=== PATIENT | male | born 1930 | race Caucasian/White ===

== ENCOUNTER 2016-12-17 14:15 | Inpatient (IN) | payer MEDICARE ==
[~2016-12-17] VITALS: Ht 170.2 cm; Wt 88.6 kg
[~2016-12-17 14:15] MED LIST: EPIN0.3D IM; LOSA100T29 PO; METO-272 PO; MULT1CAP33 PO
[2016-12-17 14:39] VITALS: BP 120/70; PULSE 73; RESP 20; O2SAT 97
[2016-12-17 15:53] LABS: EOSINOPHILS % (AUTO) 0.1 % (0-5)
[2016-12-17 15:58] LABS: BASOPHILS % (AUTO) 0.3 % (0-3); Mean Corpuscular Hemoglobin 32.2 pg (27.0-35.0); Mean Corpuscular Volume 91.5 fL (81-100); NEUTROPHILS % (AUTO) 77.7 % (40-74); Platelet Count 209 bil/L (150-400)
[2016-12-17 16:04] LABS: COLOR,URINE YELLOW (YELLOW)
[2016-12-17 16:05] LABS: APPEARANCE,URINE TURBID (CLEAR,HAZY); OCCULT BLOOD,URINE LARGE (NEGATIVE); UROBILINOGEN,URINE NORMAL (NORMAL)
[2016-12-17 16:06] LABS: ICTOTEST,URINE POSITIVE (Negative)
--- NOTE | 2016-12-17 18:06 | ED.REPORT ---
HPI-Abd Pain M 40 and Over Date of Service Dec 17, 2016 ED Provider: Wenceslao Camejo DO Pt is a 86 year old male with a history of HTN and GERD who presents to the ED complaining of worsening intermittent abdominal pain onset 6 days ago. He c/o associated dysuria with burning sensation, hematuria, nausea, flank pain, increased urinary frequency, and non-productive cough. He denies fever, vomiting , and diarrhea. Nursing Notes Stated Complaint: ABDOMINAL PAIN, PAIN WITH URINATION, DARK URINE Chief Complaint: Male Abdominal Pain Nursing Notes Reviewed: Yes Allergies: Coded Allergies: lisinopril (Verified Allergy, Unknown, 03/18/16) Uncoded Allergies: Seafood (Allergy, Severe, Angioedema, 03/18/16) Scheduled Epinephrine-Expunged Drug, Do Not Renew! (Epipen-Expunged Drug, Do Not Renew!) 0.3 Mg/0.3/Syringe Pen.injctr 0.3 MG IM PRN Losartan Potassium (Losartan Potassium) 100 Mg Tablet 100 MG PO DAILY Metoprolol Succinate ER (Metoprolol Succinate ER) 50 Mg Tab.er.24h 50 MG PO DAILY Miscellaneous Medications Multivitamin (Multivitamins) 1 Each Capsule 1 EACH PO General Time Seen by MD: 18:05 Chief Complaint Abdominal pain Hx Obtained From: Patient Arrived By: Walk-in Sudden in Onset?: No Onset Occurred: 1 week ago Symptom Duration: Since onset Past Medical History Past Medical History Pneumonia Prediabetic Arthiritis Reports: GERD, Hypertension Past Surgical History Prostate cancer Vasectomy, limpoma removal Smoking History Former Smoker Social History Alcohol Use: Denies alcohol use Drug Use: Denies drug use Other Social History: Good social support Ambulatory Status Independent Review of Systems Constitutional: Denies: Fever Respiratory: Reports: Non-productive cough GI: Reports: Abdominal pain, Nausea, Denies: Diarrhea, Vomiting Male: Reports Dysuria, Reports Flank pain, Reports Hematuria, Reports Urinary frequency Complete sys rev & neg: except as marked. Physical Exam Initial Vital Signs Vital Signs (First) Date Time Temp Pulse Resp B/P Pulse Ox O2 Delivery O2 Flow Rate FiO2 12/17/16 14:39 37.0 73 20 120/70 97 Room Air Initial VS: Reviewed Head / Eyes: Atraumatic, Normocephalic Neck: Supple, Full range of motion Extremities: Vascular intact, Neuro intact Neurologic: Alert, Oriented, Nonfocal Psychiatric: Mood/affect normal, Behavior normal General/Constitutional: Awake, Alert Respiratory / Chest: Atraumatic, Breath sounds NL, Breath sounds = bilat Cardiovascular: Heart rate NL, Regular rhythm, Heart sounds NL Trace foot edema Abdomen: Atraumatic, Soft Mild diffuse tenderness Back: Atraumatic, Full range of motion Skin: Warm, Dry, Intact Jaundiced Interpretation & Diagnostics Lab Results Interpretation Result Diagram: 12/17/16 1548 12/17/16 1548 Test 12/17/16 15:37 12/17/16 15:48 12/18/16 00:09 12/18/16 00:14 Urine Color Yellow (YELLOW) Urine Appearance Turbid (CLEAR,HAZY) Urine pH 5.0 (5.0-8.0) Urine Specific [place] 1.025 (1.003-1.035) Urine Protein 100mg/dL (NEG,TRACE) Urine Glucose (UA) Negativemg/dL (NEGATIVE) Urine Ketones Negativemg/dL (NEGATIVE) Urine Occult Blood Large (NEGATIVE) Urine Nitrite Negative (NEGATIVE) Urine Bilirubin Moderate (NEGATIVE) Urine Ictotest Positive (Negative) Urine Urobilinogen Normalmg/dL (NORMAL) Urine Leukocyte Esterase Moderate (NEGATIVE) Urine RBC 0-2/hpf (0-2) Urine WBC Packed/hpf (0-5) Urine Epithelial Cells Occasional/hpf (NONE-MOD) Urine Crystals None seen (NONE SEEN) Urine Bacteria Many/hpf (NONE-FEW) Urine Hyaline Casts None/lpf (NONE) Urine Granular Casts None seen (NONE SEEN) Urine Waxy Casts None seen (NONE SEEN) Urine Red Blood Cell Casts None seen (NONE SEEN) Urine White Blood Cell Casts None seen (NONE SEEN) Urine Mucus Present (None Seen) Urine Trichomonas None seen (NONE SEEN) Urine Yeast None (NONE SEEN) Urinalysis Comment None Urine Culture Reflexed Indicated White Blood Count 20.1th/mm3 (3.8-10.1) Red Blood Count 4.23mil/mm3 (4.40-5.80) Hemoglobin 13.6g/dL (13.8-17.2) Hematocrit 38.7% (41.0-50.0) Mean Corpuscular Volume 91.5fL (81-100) Mean Corpuscular Hemoglobin 32.2pg (27.0-35.0) Mean Corpuscular Hemoglobin Concent 35.1% (32.0-37.0) Red Cell Distribution Width 12.8% (12.3-15.4) Platelet Count 209bil/L (150-400) Neutrophils (%) (Auto) 77.7% (40-74) Lymphocytes (%) (Auto) 10.3% (14-46) Monocytes (%) (Auto) 11.0% (4-12) Eosinophils (%) (Auto) 0.1% (0-5) Basophils (%) (Auto) 0.3% (0-3) Prothrombin Time 11.4sec (8.1-12.5) Prothromb Time International Ratio 1.06ratio Sodium Level 126mEq/L (134-144) Potassium Level 4.7mEq/L (3.5-5.2) Chloride Level 87mEq/L (97-108) Carbon Dioxide Level 19mmol/L (18-29) Blood Urea Nitrogen 34mg/dL (8-27) Creatinine 2.38mg/dL (0.76-1.27) Estimat Glomerular Filtration Rate 28mL/min (>59) Glucose Level 353mg/dL (60-99) Calcium Level 9.3mg/dL (8.5-10.1) Total Bilirubin 6.6mg/dL (0.0-1.2) Aspartate Amino Transf (AST/SGOT) 93U/L (0-50) Alanine Aminotransferase (ALT/SGPT) 252U/L (0-44) Alkaline Phosphatase 425U/L (25-160) Troponin T 0.013ug/L (0.0-0.011) Total Protein 7.6g/dL (6.4-8.4) Albumin 3.5g/dL (3.4-5.0) Hold [place] Top Tube Received (Received) Acetaminophen Level < 15.0ug/mL Rx (10-25) Hold Urine Received (Received) ECG Interpretation ECG Interpretation: Sinus rhythm with a rate of 66 Left bundle branch block Time: 20:19 Interpreted by: ED physician X-Ray Chest Interpretation Chest Xray Interpretation: IMPRESSION: Normal for age. Dictated by: Jourdan Nuñez M.D. on 12/17/2016 at 19:07 View: Portable, 1 view Interpretation / Wet Read by: Interpret - Radiologist CT Abd / Pelvis Interpretation CONCLUSION: No bilary ductal dilatation. Mild hydronephrosis bilaterally without obstructing stones. This could be secondary to the distended bladder. Diverticula without evidence of diverticulitis. Transmitted to the eD at 22:52. Study type: Abdominal CT no contrast Interpretation / Wet Read by: Interpret - Radiologist US Abdominal Aorta IMPRESSION: Hyperechoic liver echotexture, most likely reflecting moderate diffuse fatty infiltration throughout the liver. No biliary distention is seen, no gallstones are identified within the gallbladder lumen and there is no suspicion for acute cholecystitis at this time. The right kidney shows mild to moderate hydronephrosis, etiology uncertain. Bladder diverticulum, debris within the bladder lumen. Findings discussed with the ordering healthcare provider. The creatinine level is elevated, CT scanning with oral contrast through the abdomen and pelvis is anticipated, and followup MR cholangiography may be obtained subsequently given reported abnormal liver function test despite the presence of no identified biliary distention. Dictated by: Jourdan Nuñez M.D. on 12/17/2016 at 20:26 Exam Interpreted by: Radiologist Re-Eval/Medical Decision Med Decision/Clinical Course This is a very pleasant 86-year-old male who presents to jaundice with diffuse abdominal pain and frequent urination. Symptoms going on for about 5 days. On examination he certainly was jaundice. He had a mildly tender abdomen without clinical peritonitis. Specifically his pain seemed to be more diffuse. It did not localize to the right upper quadrant. Remainder of his exam was benign. Diagnostics reveal evidence of pyelonephritis, acute on chronic renal insufficiency, acute hepatitis that is an obstructive pattern. We are culturing his urine and blood. An acute hepatitis panel has been sent out. CT scan was really noncontributory as well as an ultrasound. I suppose both these tests however rule out cholecystitis. Either way he is going to be admitted to the hospitalist service. I spoke with Dr. Alaniz from gastroenterology. He will consult tomorrow. Broad spectrum antibiotics. MRCP anticipated. Follow up with the acute hepatitis panel. Source of Hx: Old records Time of Eval: 18:22 Re-Evaluation/Progress Note: Informed pt of plan for admission. Pt understands and agrees with plan for admission. All questions addressed. Time of Eval: 19:22 Re-Evaluation/Progress Note: Pt rechecked. Informed pt of plan for US. Pt understands and agrees with plan for US. All questions address. Time of Eval: 22:35 Re-Evaluation/Progress Note: Pt rechecked. Updated pt on progress. All questions were addressed. Time of Eval: 22:51 Re-Evaluation/Progress Note: Pt rechecked. Updated pt and family on progress. All questions addressed. Time of Eval: 23:22 Re-Evaluation/Progress Note: Pt rechecked. Updated pt. All questions addressed. Consultation #1: Referral / Consult Name: Yumi Perry DO Call Returned at: 00:14 Strategic Planning Analyst: Will see patient, Agrees with eval, Agrees with plan, Accepts admit Consultation #2: Referral / Consult Name: Randall Alaniz MD Call Returned at: 00:15 Strategic Planning Analyst: Agrees with eval, Agrees with plan Note: Consult with GI. Discussed pt's case. Counseled Regarding: Diagnosis, Lab results, Need for admission Discharge & Departure Primary Impression: Generalized abdominal pain Additional Impressions: Pyelonephritis Hepatitis Jaundice Renal insufficiency Obstructive uropathy Disposition: ADMITTED TO HOSPITAL Vital Signs - All Vital Signs Date Time Temp Pulse Resp B/P Pulse Ox O2 Delivery O2 Flow Rate FiO2 12/17/16 22:58 36.9 71 20 97/54 98 Room Air 12/17/16 14:39 37.0 73 20 120/70 97 Room Air )( All Prior VS Reviewed: Yes Condition: Stable Referrals: Genesis Barba PA-C (PCP) Gab Attestation Portions of this note were transcribed by Mahsa Nelson. I, Dr. Camejo personally performed the history, physical exam and medical decision-making; I reviewed and confirmed the accuracy of the information in the transcribed note. Signed by : Gab Mccloud, 12/17/16. copies to: Genesis Barba PA-C, Todd P DO Dec 17, 2016 18:06 Mahsa Aguillon Dec 17, 2016 18:23
[2016-12-17] MEDS ORDERED: cefTRIAXone Inj 2,000 MG in Dextrose 5% Minibag Plus 50 ML IV ONE (18:20)
[2016-12-17] MEDS ORDERED: 0.9% Sodium Chloride 1,000 ML IV ONE (18:20)
--- NOTE | 2016-12-17 19:08 | DRSVH ---
PROCEDURE: X-RAY CHEST ONE VIEW, PORTABLE ([id number]) INDICATIONS: sepsis TECHNIQUE: One view of the chest was acquired. COMPARISON: None. FINDINGS: Surgical changes and devices: None. Lungs and pleura: No pleural effusions or pneumothorax. Lungs are clear. Mediastinum: Mediastinal contours appear normal. Heart size is normal. Bones and chest wall: No suspicious bony lesions. Overlying soft tissues appear unremarkable. IMPRESSION: Normal for age. Dictated by: Jourdan Nuñez M.D. on 12/17/2016 at 19:07 Approved by: Jourdan Nuñez M.D. on 12/17/2016 at 19:07
[2016-12-17] MEDS ORDERED: Iohexol 300 mg/mL 30 mL Inj PO ONE (20:20)
--- NOTE | 2016-12-17 20:31 | DRSVH ---
PROCEDURE: US ABDOMEN ([id number]) INDICATIONS: jaundice abdominal pain, TECHNIQUE: Real-time scanning was performed of the abdominal and retroperitoneal organs, with image documentatio n. COMPARISON: None. FINDINGS: Liver: Liver is normal in size and homogeneous in echotexture, diffusely hyperechoic consistent with fatty infiltration. Gallbladder: The gallbladder is free of inflammatory change and no biliary distention is found. The adjacent common hepatic duct measures up to 4.5 mm. This is well within normal limits. Biliary ducts: Intrahepatic bile ducts are non-dilated. Extrahepatic bile duct caliber measures 4.4 mm. Normal is 6-7 mm or less in diameter, or 10 mm or less post-cholecystectomy. Pancreas: Visualized portions of the pancreas are sonographically normal. Spleen: Spleen is normal in size and homogeneous in echotexture. Kidneys: Kidneys are normal in size and echotexture. Right kidney measures 8.4 cm long; left kidney measures 11.2 cm long. No hydronephrosis or nephrolithiasis on the left but there appears to be mil d to moderate hydronephrosis on the right. No solid masses. Aorta: Visualized aorta is normal in caliber at less than 3 cm. Iliacs: Proximal common iliac arteries are normal in caliber at less than 2.5 cm. IVC: Intrahepatic inferior vena cava is patent. Miscellaneous: No free abdominal fluid. A posterior bladder diverticulum appears present inferiorly and there also is debris within the bladder lumen IMPRESSION: Hyperechoic liver echotexture, most likely reflecting moderate diffuse fatty infiltratio n throughout the liver. No biliary distention is seen, no gallstones are identified within the gallb ladder lumen and there is no suspicion for acute cholecystitis at this time. The right kidney shows mild to moderate hydronephrosis, etiology uncertain. Bladder diverticulum, de bris within the bladder lumen. Findings discussed with the ordering healthcare provider. The creatinine level is elevated, CT scanning with oral contrast through the abdomen and pelvis is an ticipated, and followup MR cholangiography may be obtained subsequently given reported abnormal liver function test despite the presence of no identified biliary distention. Dictated by: Jourdan Nuñez M.D. on 12/17/2016 at 20:26 Approved by: Jourdan Nuñez M.D. on 12/17/2016 at 20:30
[2016-12-17] MEDS: Sodium Chloride LOK Flush 10 mL Syringe IVFLUSH SCH (21:05)
[2016-12-17 22:58] VITALS: BP 97/54; PULSE 71; RESP 20; O2SAT 98
[2016-12-17 23:17] LABS: INR 1.06 ratio
[2016-12-17] MEDS ORDERED: Lidocaine Topical 2% 30 mL Jelly ONE (23:52)
[2016-12-18] VITALS (9 sets, daily range): BP systolic 129–150; BP diastolic 48–76; PULSE 66–85; RESP 16–17; O2SAT 94–98
[2016-12-18] MEDS ORDERED: Alum-Mag Hydrox-Simeth 30 mL Suspension PO PRN (00:45)
[2016-12-18] MEDS ORDERED: Ondansetron 2 mg/mL 2 mL Inj IVPUSH PRN (00:45)
[2016-12-18] MEDS ORDERED: Polyethylene Glycol (PEG) 17 Gm Powder PO PRN (02:00)
[2016-12-18] MEDS ORDERED: EPIN0.3P17 IJ (02:51)
[2016-12-18] MEDS: 0.9% Sodium Chloride 1,000 ML IV SCH ×2 (02:53→16:34)
--- NOTE | 2016-12-18 03:13 | PCM.HPMED ---
Subjective Date of Service Dec 18, 2016 Primary Provider: Admitting Physician: Yumi Perry DO Primary Care Physician: Genesis Barba PA-C Attending Physician: Yumi Perry DO Admit Status: From the Emergency Department, Full Admit Chief Complaint: Dysuria. . History of Present Illness: Monica Ford is an 86-year-old male with a past medical history significant for hypertension and GERD who presents to [facility] emergency Department complaining of worsening intermittent abdominal pain 6 days. The patient complains of abdominal pain that started approximately 6 days ago. He reports that he began increasing frequency of urination. He has associated dysuria with burning sensation, hematuria, and flank pain. He denies fever, nausea, vomiting, and diarrhea. He rates his abdominal pain a + 7 out of 10 in severity. He has tried acetaminophen with Benadryl 1-2 tabs in the last week which gave him some relief. He has also had unrelated pruritus and non- productive cough. He denies any history of nephrolithiasis. Vital signs in the ER: Temperature 37.0. Pulse 73. Respiratory rate 20. Blood pressure 120/70. Pulse ox 97% on room air. He was given 1 L NS and ceftriaxone 2 g 1 in the ER. PCP is Genesis Barba PA-C. . Review of Systems: A comprehensive review of systems was conducted with the patient and found to be negative except as above in the History of Present Illness. . Allergies Coded Allergies: lisinopril (Verified Allergy, Unknown, 03/18/16) Uncoded Allergies: Seafood (Allergy, Severe, Angioedema, 03/18/16) Home Medications Losartan 100 mg daily. Metoprolol succinate 50 mg daily. Tums PRN dyspepsia. Multivitamin. . . PMH 1. Hypertension. 2. Gout. 3. BPH status post TURP? 4. GERD. . Surgical History 1. Tonsillectomy. 2. Prostate surgery/TURP? . Family History Mother and father who of old age. Brother who was an alcoholic and had diabetes mellitus who is . Brother who from MVA and drown. Sister from unknown cancer. . Social History Hx Alcohol Use: Yes (1 mixed drink 1-2 times a month) Hx Substance Use: No Hx Tobacco Use: Yes (quit in high school, 1ppd x 1 year) Smoking Status: Former Smoker (quit in high school, 1ppd x 1 year) Living Arrangement: Alone Additional Information The patient has been and has 4 children, 2 daughters and 2 sons. 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 . Exam Vital Signs Vital Sign - Last Date Time Temp Pulse Resp B/P Pulse Ox O2 Delivery O2 Flow Rate FiO2 12/18/16 00:59 36.6 69 16 145/76 95 Room Air Intake and Output 12/17/16 12/17/16 12/18/16 Cumulative From/Thru 14:58 22:58 06:58 12/17/16 14:39 - 12/18/16 00:50 Intake Total 1000 ml 1000 ml Balance 1000 ml 1000 ml Intake IV Total 1000 ml 1000 ml Exam General: Elderly gentleman lying in bed and in no acute distress, icteric, well- developed, well-nourished, appropriately interactive. HEENT: Normocephalic, atraumatic. External ears without defect. Pupils equal, round, and reactive to light. Icteric sclerae, moist conjunctivae, and no lid lag. Oropharynx free of erythema and cobble stoning with moist mucosa. Neck: Supple with full range of motion. No jugular venous distension. No bruits. No lymphadenopathy or thyromegaly. Cardiovascular: Regular rate and rhythm without murmurs, rubs, or gallops appreciated. Pulmonary: Clear to auscultation bilaterally with no crackles, wheezes, or rhonchi. Normal respiratory effort with no use of accessory muscles. Abdomen: Soft, mild tenderness to palpation in the lower abdomen/suprapubic area , nondistended, bowel sounds present. No hepatosplenomegaly or masses appreciated. Genitourinary: Lilly catheter in place draining purulent urine. Extremities: No clubbing or cyanosis. Mild trace pitting edema to mid pretibial area. Skin: Normal temperature, turgor, and texture; no rash, ulcers, or subcutaneous nodules appreciated. Neurological: Cranial nerves grossly intact. Normal muscle strength, tone, and bulk. Reflexes, coordination, and sensory function within normal limits. No known gait impairment. Psychiatric: Normal mood and affect. Alert and oriented to person, place, and time. . Lab and Diagnostics Labs Item Value Date Time Prothrombin Time 11.4 sec 12/17/16 1548 Prothromb Time International Ratio 1.06 ratio 12/17/16 1548 Item Value Date Time Urine Color Yellow 12/17/16 1537 Urine Appearance Turbid 12/17/16 1537 Urine pH 5.0 12/17/16 1537 Urine Specific [place] 1.025 12/17/16 1537 Urine Protein 100 mg/dL 12/17/16 1537 Urine Glucose (UA) Negative mg/dL 12/17/16 1537 Urine Ketones Negative mg/dL 12/17/16 1537 Urine Occult Blood Large 12/17/16 1537 Urine Nitrite Negative 12/17/16 1537 Urine Bilirubin Moderate 12/17/16 1537 Urine Ictotest Positive 12/17/16 1537 Urine Urobilinogen Normal mg/dL 12/17/16 1537 Urine Leukocyte Esterase Moderate 12/17/16 1537 Urine RBC 0-2 /hpf 12/17/16 1537 Urine WBC Packed /hpf 12/17/16 1537 Urine Epithelial Cells Occasional /hpf 12/17/16 1537 Urine Crystals None seen 12/17/16 1537 Urine Bacteria Many /hpf 12/17/16 1537 Urine Hyaline Casts None /lpf 12/17/16 1537 Urine Granular Casts None seen 12/17/16 1537 Urine Waxy Casts None seen 12/17/16 1537 Urine Red Blood Cell Casts None seen 12/17/16 1537 Urine White Blood Cell Casts None seen 12/17/16 1537 Urine Mucus Present 12/17/16 1537 Urine Trichomonas None seen 12/17/16 1537 Urine Yeast None 12/17/16 1537 Urinalysis Comment None 12/17/16 1537 Urine Culture Reflexed Indicated 12/17/16 1537 Item Value Date Time Calcium Level 9.3 mg/dL 12/17/16 1548 Total Bilirubin 6.6 mg/dL H 12/17/16 1548 Aspartate Amino Transf (AST/SGOT) 93 U/L H 12/17/16 1548 Alanine Aminotransferase (ALT/SGPT) 252 U/L H 12/17/16 1548 Alkaline Phosphatase 425 U/L H 12/17/16 1548 Troponin T 0.013 ug/L H 12/17/16 1548 Total Protein 7.6 g/dL 12/17/16 1548 Albumin 3.5 g/dL 12/17/16 1548 Result Diagram: 12/17/16 1548 12/17/16 1548 Microbiology Blood culture 2 pending. Urine culture pending. . X-Rays, CTs and MRIs US ABDOMEN IMPRESSION: Hyperechoic liver echotexture, most likely reflecting moderate diffuse fatty infiltration throughout the liver. No biliary distention is seen , no gallstones are identified within the gallbladder lumen and there is no suspicion for acute cholecystitis at this time. The right kidney shows mild to moderate hydronephrosis, etiology uncertain. Bladder diverticulum, debris within the bladder lumen. Findings discussed with the ordering healthcare provider. The creatinine level is elevated, CT scanning with oral contrast through the abdomen and pelvis is anticipated, and followup MR cholangiography may be obtained subsequently given reported abnormal liver function test despite the presence of no identified biliary distention. Dictated by: Jourdan Nuñez M.D. on 12/17/2016 at 20:26 X-RAY CHEST ONE VIEW, PORTABLE IMPRESSION: Normal for age. Dictated by: Jourdan Nuñez M.D. on 12/17/2016 at 19:07 . Assessment & Plan Monica Ford is an 86-year-old male with a past medical history significant for hypertension and GERD who presents to [facility] emergency Department complaining of worsening intermittent abdominal pain 6 days. 1. Acute obstructive uropathy with probable pyelonephritis, present on admission. Active. - Patient presented with dysuria, hematuria, urinary frequency with profound leukocytosis. - Patient has a history of BPH status post prostate surgery which is likely the cause of his obstruction. Differential diagnosis includes less likely nephrolithiasis versus stricture. - Abdominal ultrasound revealed right hydronephrosis without nephrolithiasis, as above. - Lilly catheter placed and draining pyuria and will leave to decompress bladder and relieve obstruction pending urology recommendations. - Ordered Roxicodone 2.5 mg every 4 hours as needed for pain due to acute transaminitis. - Ordered blood cultures 2 and urine culture, pending. - Continue ceftriaxone 2 g every 24 hours. - Day team to consult urology tomorrow morning. 2. Acute transaminitis, present on admission. Active. - Initial bilirubin 6.6 with elevated LFTs in a cholestatic pattern. - Abdominal ultrasound did not reveal dilation of the common bile duct, as above. - Acute hepatitis panel ordered and pending. - Avoid Tylenol and toxic liver metabolites. - Dr. Alaniz from GI was consulted and recommends MRCP tomorrow to assess for CBD stone. 3. Acute kidney injury on chronic kidney disease, present on admission. Active. - Patient's baseline creatinine 1.5 in 2016. Initial creatinine 2.38. - Avoid nephrotoxins. - Lilly catheter placed as above. - Ordered IV fluid hydration with NS at 80 mL/hr. 4. Acute hyponatremia, present on admission. Active. - Likely secondary to decreased PO intake and acute kidney injury. Obstructive jaundice may also be causing pseudohyponatremia from lipoprotein X. - Ordered IV fluid hydration with NS at 80 mL/hr. 5. Acute hyperglycemia, present on admission. Active. - Likely secondary to acute kidney injury. - We will check hemoglobin A1c to rule out diabetes mellitus type II. - Recheck CMP in the morning and if needed we will add a low-dose correctional scale insulin. Chronic problems: 6. Hypertension, present on admission. Stable. - Continue losartan 100 mg daily and metoprolol succinate 50 mg daily. 7. GERD, present on admission. Stable. - Tums ordered PRN. PRN antiemetics: Zofran and Maalox. PRN bowel regimen: Senna and MiraLAX. PRN analgesics: Tylenol. Patient is admitted under inpatient status with expected length of stay greater than 2 midnights due to severity of presenting symptoms, risk of adverse event, and complexity of treatment plan. . VTE Prophylaxis: Sub-Q Heparin (Unfractionated), SCDs Resuscitation Status: DNR/DNI:Do Not Resuscitate/Intubate Attending Statement The patient was seen and examined together with house staff on 12/17/2016 and I agree with the history, exam and plan as outlined in the note above. Yoly Marin DO Dec 18, 2016 01:46 Yumi Perry DO Dec 18, 2016 05:24
[2016-12-18 05:41] LABS: BASOPHILS % (AUTO) 0.2 % (0-3); EOSINOPHILS % (AUTO) 0.3 % (0-5); MONOCYTES % (AUTO) 13.1 % (4-12); Mean Corpuscular Hemoglobin 31.9 pg (27.0-35.0); Mean Corpuscular Volume 91.3 fL (81-100); NEUTROPHILS % (AUTO) 75.8 % (40-74); Platelet Count 203 bil/L (150-400)
--- NOTE | 2016-12-18 06:08 | NUR ---
admit Pt arrived to unit at 0050 from ED via stretcher. Alert, oriented, and able to make needs known. No decreased in LOC noted. Denies N/V/D, resp distress and/or SOB. Pleasant and cooperative with care. Transfer with one person stand by assist for safety. Lilly catheter in place, patent and draining cloudy thick urine with sediment noted. Pt was uncomfortably and c/o abdominal discomfort. ambulated in room with no balance deficit. Medicated for abd. pain with oxycodone 2.5mg x1 with some relief noted and reported. NPO except for pain med, approved by . care continues.
[2016-12-18] MEDS: Heparin 5,000 Unit/mL Inj SUBQ SCH ×2 (08:07→16:38)
[2016-12-18] MEDS: Sodium Chloride LOK Flush 10 mL Syringe IVFLUSH SCH ×2 (08:30→16:34)
--- NOTE | 2016-12-18 08:49 | CONS ---
[address] [address] CONSULTATION REPORT PATIENT: ALBERTO PRADHAN : 1930 MR#: [id number] ADMIT: 12/18/2016 JOB ID: [id number] DATE OF SERVICE: 12/18/2016 REASON FOR CONSULTATION: Jaundice, elevated transaminitis, and abdominal pain. HISTORY OF PRESENT ILLNESS: This is a pleasant 86-year-old, male with a history of hypertension who presents here with jaundice and abdominal pain for the past six days. The patient complains of epigastric pain, 7/10, sharp, burning sensation, nonradiating. The patient states he has increased frequency of urination. The patient states that he does not know if it changes with food or not. The patient never had an EGD or colonoscopy in the past and denies a family history of colon cancer, inflammatory bowel disease, celiac disease, or pancreatic cancer. Patient is not a smoker. The patient denies rectal bleeding, nausea, vomiting, hematemesis, change in bowel habits, or unintentional weight loss. The patient was noticed in the ED to have a white count of 20.1, hemoglobin 13.6, hematocrit 38, platelet count of 209. The patient's total bilirubin 6.6, AST 93, ALT 252, alk phos 425 with a creatinine 2.3. The patient denies any use of Tylenol or acetaminophen or salicylates and no history of alcohol. The patient also denies a history hepatitis A, B, or C. The patient denies any new medications or herbal medications prior to admission. The patient had an abdominal ultrasound that was performed on December 17, 2016 which showed a hyperechoic liver architecture most likely fatty liver. No stones or biliary dilatation was noted. The patient's common bile duct was measured 4.4 mm in diameter. Patient right kidney did show [id number] hydronephrosis. The patient presents for further evaluation. PAST MEDICAL HISTORY: As stated above. PAST SURGICAL HISTORY: Tonsillectomy and TURP. ALLERGIES: 1. LISINOPRIL. 2. SEAFOOD. HOME MEDICATIONS: 1. Losartan. 2. Metoprolol. 3. Tums. 4. Multivitamin. SOCIAL HISTORY: He is a social drinker, drinks 1-2 times a month. No IV drug use. He smoked one pack per day for one year in high school. FAMILY HISTORY: Negative for colon cancer, inflammatory bowel disease, or celiac disease. REVIEW OF SYSTEMS: The patient denies headache, blurred vision, nausea, vomiting, chest pressure. Positive for abdominal pain. No skin rash or joint pain. PHYSICAL EXAMINATION: Vital signs upon presentation: Temperature 36.9, pulse 68, respiratory rate 16, blood pressure 135/73, satting 95% room air. General: In no acute distress. Head: No scars. Eyes positive bilateral scleral icterus. Throat supple. Lungs clear to auscultation bilaterally. Cardiovascular regular rhythm and rate. Abdomen soft, nondistended. Positive epigastric pain. Palpation normoactive bowel sounds. Extremities: No cyanosis, clubbing, or edema. LABORATORIES: Show a sodium 128, potassium 4.9 chloride 92, bicarbonate 20, BUN 35, creatinine 2.3. Glucose 214. Calcium 8.6. Total bili 6.1. AST 67, ALT 187, alk phos 401. Total protein 6.1, albumin 3.3. White count 18.7, hemoglobin 12.1, hematocrit 34, platelet count of 203, MCV 91, PT 11.4. INR 1.06. Toxicology for acetaminophen is negative. Viral hepatitis is pending. ASSESSMENT AND PLAN: This is an 86-year-old, male with a history of hypertension, gout, gastroesophageal reflux disease, benign prostatic hypertrophy status post transurethral resection of the prostate presents here with jaundice, abdominal pain, and elevated transaminitis. Differential diagnosis includes viral hepatitis versus malignancy such as pancreatic cancer, versus common bile duct stones versus autoimmune hepatitis. The patient denies any herbal or new medications prior to the onset of jaundice. The patient's transaminases do not paint a picture of alcoholic hepatitis. RECOMMENDATIONS: 1. I agree with MRCP. 2. Follow up viral hepatitis panel. Please also check ROSEANN, anti-smooth muscle, anti-LKM, and antimitochondrial antibody. 3. If the patient's liver enzymes continue to trend higher during hospital admission, will consider an ultrasound-guided liver biopsy versus patient may need an endoscopic ultrasound if the MRCP is negative to rule out pancreatic mass. Will continue to follow.
--- NOTE | 2016-12-18 08:49 | DRSVH ---
PROCEDURE: CT ABDOMEN AND PELVIS WITHOUT CONTRAST ([id number]) INDICATIONS: jaundice, hepatitis obstructive pattern TECHNIQUE: After the administration of oral contrast, 5 mm thick sections acquired from the diaphragms to the sy mphysis. 5 mm coronal and sagittal reformats were performed. For radiation dose reduction, the foll owing was used: automated exposure control, adjustment of mA and/or kV according to patient size. COMPARISON: None. FINDINGS: Image quality: Excellent. ABDOMEN: Lung bases: Lung bases are clear. Heart size is normal. Solid organs: Liver and spleen are normal in size. Gallbladder is contracted. Pancreas is normal i n size. No adrenal nodules. A there multiple focal cortical scars throughout the bilateral kidneys. The right kidney is moderately atrophic. There is mild bilateral hydronephrosis and large extrarenal pelves bilaterally. The bilateral ureters are moderately dilated throughout their course. There multi ple low density exophytic renal cystic lesions and mild perinephric fat stranding. Peritoneum and bowel: Bowel loops demonstrate normal wall thickness and caliber. The appendix is th in walled. There are scattered sigmoid diverticula. No evidence for diverticulitis. No free fluid or air. Nodes and vessels: No retroperitoneal or mesenteric adenopathy by size criteria. Aorta and inferior vena cava are normal in size. There are scattered atheromatous calcifications throughout the aorta and iliac arteries bilaterally. Miscellaneous: No ventral hernias. PELVIS: Genitourinary: Bladder wall thickness is normal. Miscellaneous: No inguinal adenopathy. There is an intermediate density soft tissue mass or fluid co llection may be associated with the superior aspect of the right testicle, and is only partially yesenia acterized at the inferior margin of the study (series 2, image 94). There is a small fat containing l eft inguinal hernia. Bones: No suspicious bony lesions. No vertebral body compression fractures. Severe degenerative ch anges are present throughout the lumbar spine. IMPRESSION: 1. No acute intra-abdominal findings. Normal appendix. 2. Diverticulosis. No acute diverticulitis. 3. Diffuse cortical scarring, or renal atrophy, and mild bilateral hydronephrosis and hydroureter. Th ere no stones to explain obstruction. The bilateral dilated renal collecting systems are likely chron ic in nature. This finding may be secondary to ureteral outlet obstruction and dilated bladder. Reflu x study could also be helpful if further characterization is warranted. Note: The preliminary [facility] interpretation and the above final report are concordant. 4. Partially characterized intermediate density fluid collection or soft tissue mass likely associate d with the right testicle. Testicular ultrasound recommended to further characterize this finding. This finding was not described on the overnight interpretation. This finding was discussed with the mame webster's nurse at 8:46 AM on 12/18/16. Dictated by: Gemini Vega M.D. on 12/18/2016 at 8:37 Approved by: Gemini Vega M.D. on 12/18/2016 at 8:48
--- NOTE | 2016-12-18 12:09 | NUR ---
Hematuria Urine farley colored. Appears to be miguel blood. Earlier urine was orange colored.
[2016-12-18] MEDS ORDERED: CeFAZolin Inj 1 GM in IV Premix 1 EACH IV SCH (13:00)
--- NOTE | 2016-12-18 15:39 | DRSVH ---
PROCEDURE: MR ABDOMEN MRCP INDICATIONS: 86 year-old male with jaundice, pruritus, and transaminitis. TECHNIQUE: Coronal HASTE through the abdomen, axial 2-D FLASH in- and [id number], and breath-hold T2 FSE with fat saturation through the biliary system and pancreas. Oblique coronal and axial thin-slice HASTE, radial thick-slab HASTE centered on the extrahepatic bile ducts. Intravenous secretin: Not requested. COMPARISON: [facility], CT, CT ABD PELVIS WO CON, 12/17/2016, 21:59. [facility], US, US ABDOMEN, 12/17/2016, 18:53. FINDINGS: Image quality: Several sequences are mildly degraded by respiratory motion. Pancreas and biliary system: Intra- and extra-hepatic biliary ducts are non dilated. Pancreas is no rmal in morphology, without adjacent soft tissue edema. Pancreatic duct is normal in caliber, withou t developmental anomalies. Gallbladder is contracted at the time of scanning, therefore not well-vis ualized. Other solid organs: Liver and spleen are normal in size. In and out of phase images demonstrate no fatty infiltration of the liver. In phase images demonstrate decreased signal within the splenic pare nchyma. No adrenal nodules. Several bilateral renal cortical simple cysts are again noted, measuring up to 4.4 cm in the inferior left kidney. Bilateral renal cortical scarring is again noted, as well a s mild lateral hydronephrosis. Nodes and vessels: No retroperitoneal or mesenteric adenopathy by size criteria. Aorta and inferior vena cava are normal in size. Bowel and peritoneum: Unenhanced bowel loops are normal in caliber. There is transverse and descend ing colon diverticulosis. No free fluid. The bladder is decompressed by a Lilly catheter. Lung bases: No basal pleural effusions. Heart size is normal. Bones and soft tissues: No ventral hernias. Bone marrow is of normal overall signal. There is mult ilevel lumbar spine disc degeneration. IMPRESSION: 1. No intra- or extrahepatic biliary ductal dilation to explain patient's jaundice. Contracted gallbl adder at the time of scan limits gallbladder evaluation. 2. Normal sized spleen, with findings consistent with increased iron deposition. As such, findings wo uld suggest secondary hemochromatosis, secondary to multiple blood transfusions or increased dietary iron. 3. Bilateral hydronephrosis again noted, along with multifocal renal cortical scarring, consistent wi th chronic vesicoureteral reflux. 4. Several bilateral renal cortical simple cysts again noted. 5. Transverse and descending colon diverticulosis. Dictated by: Rivera Rae M.D. on 12/18/2016 at 15:19 Approved by: Rivera Rae M.D. on 12/18/2016 at 15:37
--- NOTE | 2016-12-18 16:02 | NUR ---
Social Work- Attempted Assessment Data: EMR reviewed. Pt is a 86 year old male admitted 12/18/16 for UTI with hydronephrosis, hepatitis, jaundice per H&P. Pt discussed in multidisciplinary rounds, no discharge needs identified at this time. Pt to receive MRCP today. Pt's insurance is [employer] [facility]. Pt's PCP is Genesis Barba PA-C. SW attempted to meet with patient x2 today to complete initial assessment. Pt has been in procedure both times. Pt's SO Jazzy was in the room, requested that LABORATORY ASST return later or tomorrow to speak with pt. Per Jazzy, pt resides in [place] with his son and daughter in law. Per chart review, pt has been independent in his room during this admission. SW will follow up to complete assessment. Assessment: Pt who is likely independent at baseline. Plan: SW to follow up to complete assessment with pt. Pt resides with family in [place]. SW will continue to follow. LITTLE Peguero
[2016-12-18] MEDS: CEFAZOLIN IV SCH (16:33)
[2016-12-18] MEDS: DEXTROSE 5% IV SCH (16:33)
--- NOTE | 2016-12-18 17:35 | NUR ---
Social Work- Initial Assessment Data: See Initial Assessment for additional information. Pt's insurance is [employer]. Per pt, pt's PCP is Jerrell Stein at [facility] in [facility]. TAL met with pt and granddaughter at bedside regarding d/c plan, Pt alert and oriented x3. Pt's designated contact center analyst is son Armen Bravo, . Pt's capacity for self-care assessed. Pt resides in [place] with his son and his daughter in law. Pt is independent at baseline with ADLs and self-care. Pt goes to the [facility] three times a week. Pt uses no DME and continues to drive. Pt has no HH or SNF history, no LTC or VA benefits. Pt has no DPOA on file but thinks he may have completed this so MATERNAL CHILD NURSE encouraged him to bring in a copy. SW provided pt with copy of discharge planning checklist and instructed him to call with any needs identified in booklet. Phone number and plan placed on whiteboard. Pt to d/c home with his family to transport via POV. No d/c needs identified. TAL will continue to follow. Assessment: Pt who is independent at baseline. Plan: Pt to d/c home with his family to transport via POV. No d/c needs identified. SW will continue to follow. LITTLE Peguero Addendum: 12/18/16 at 1739 by MOHIT AGUILAR Amended: Links added.
--- NOTE | 2016-12-18 18:21 | DRSVH ---
PROCEDURE: US TESTICULAR SONOGRAM WITH DOPPLER INDICATIONS: right scrotal swelling TECHNIQUE: Real-time scanning was performed of the scrotum and testicles, with image documentation. Color and p ulse Doppler interrogation was performed of both testicles. COMPARISON: [facility], CT, CT ABD PELVIS WO CON, 12/17/2016, 21:59. FINDINGS: Right: Testicle is normal in size at 3.1 x 1.7 x 2.5 cm, and homogenous in echotexture. Epididymis is normal in overall size and morphology. No hydrocele or varicoceles. Overlying scrotal skin is no rmal in thickness. Adjacent to the right testicle superiorly separate from the scrotum within the pe rineum there is a 6.6 x 4.4 x 4.8 cm fluid collection which does contain fine low-level echoes Left: Testicle is normal in size at 3.2 x 2.1 x 2.5 cm, and homogeneous in echotexture. Epididymis is normal in overall size and morphology. No hydrocele or varicoceles. Overlying scrotal skin is no rmal in thickness. Doppler: Color and pulse Doppler demonstrate normal and symmetric arterial flow in both testicles. IMPRESSION: 1. Normal testicles no hydrocele is seen. 2. Predominately cystic collection within the adjacent perineum adjacent to the right hemiscrotum whi ch contains fine low-level echoes. Findings are nonspecific but could be related to evolving hematom a, seroma or centered unlikely an abscess. Recommend clinical correlation. Dictated by: Marcello REED Interpreted: Jerrell Mazariegos MD on 12/18/2016 at 16:24 Approved by: Jerrell Mazariegos M.D. on 12/18/2016 at 18:20
[2016-12-18] MEDS ORDERED: cefTRIAXone Inj 2,000 MG in Dextrose 5% Minibag Plus 50 ML IV SCH (21:00)
[2016-12-19] MEDS: Heparin 5,000 Unit/mL Inj SUBQ SCH ×3 (00:52→17:00)
[2016-12-19] MEDS: Sodium Chloride LOK Flush 10 mL Syringe IVFLUSH SCH ×3 (00:52→16:30)
[2016-12-19 02:09] LABS: Hepatitis A Antibody IgM Negative (Negative); Hepatitis B Core Antibody IgM Negative (Negative)
[2016-12-19 04:40] VITALS: BP 167/67; PULSE 84; RESP 17; O2SAT 94
[2016-12-19] MEDS: CEFAZOLIN IV SCH ×2 (04:43→13:15)
[2016-12-19] MEDS: DEXTROSE 5% IV SCH ×2 (04:43→13:15)
[2016-12-19] MEDS: 0.9% Sodium Chloride 1,000 ML IV SCH ×2 (04:43→15:04)
--- NOTE | 2016-12-19 05:29 | NUR ---
Lilly Catheter Pt is alert, oriented, and able to make needs known. Pleasant and cooperative with care. Denies nausea, vomiting, and diarrhea. No changes in LOC noted. Lilly is patent and draining emelia color urine. No hematuria in this shift. Denies dysuria or discomfort around kareem area. Will continue to monitor.
[2016-12-19 08:10] LABS: RNP Antibodies <0.2 AI (0.0-0.9)
[2016-12-19 08:12] LABS: EOSINOPHILS % (AUTO) 1.4 % (0-5)
[2016-12-19 08:14] LABS: BASOPHILS % (AUTO) 0.9 % (0-3); MONOCYTES % (AUTO) 11.7 % (4-12); Mean Corpuscular Hemoglobin 31.7 pg (27.0-35.0); Mean Corpuscular Volume 92.3 fL (81-100); NEUTROPHILS % (AUTO) 67.5 % (40-74); Platelet Count 214 bil/L (150-400)
[2016-12-19 08:45] VITALS: BP 148/78; PULSE 90; RESP 20; O2SAT 94
[2016-12-19 09:01] LABS: Bilirubin, Direct 1.9 mg/dL (0.0-0.3)
[2016-12-19 09:23] VITALS: PULSE 75
--- NOTE | 2016-12-19 09:56 | PCM.PNSURG ---
Subjective Date of Service: Dec 19, 2016 Date of Service: Dec 19, 2016 Subjective: No acute events overnight. Patient reports no abdominal pain. The bilirubin has decreased from 6.1 down to 3.1 this morning. ricardo is positive. MRCP results are noted. Postop General: No Complaints Objective Vital Sign- Last 8 Hours Date Time Temp Pulse Resp B/P Pulse Ox O2 Delivery O2 Flow Rate FiO2 12/19/16 09:23 75 12/19/16 04:40 36.7 84 17 167/67 94 Room Air Intake and Output- Last 8 Hour 12/19/16 Cumulative From/Thru 07:00 12/17/16 14:39 - 12/19/16 05:52 Intake Total 751 ml 2929 ml Output Total 1100 ml 3700 ml Balance -349 ml -771 ml Intake Oral 120 ml 120 ml IV Total 631 ml 2809 ml Output Urine Total 1100 ml 3700 ml # Bowel Movements 0 1 General: Oriented X3 Neck: Supple Lungs: Clear to Auscultation Heart: Exam Unremarkable Abdomen: Benign, Soft, Non-tender, Non-distended, Normoactive bowel tones Extremities: Distal Pulses Palpable Result Diagram: 12/19/1680412/19/16 08 Assessment & Plan Impression This is an 86-year-old, male with a history of hypertension, gout, gastroesophageal reflux disease, benign prostatic hypertrophy status post transurethral resection of the prostate presents here with jaundice, abdominal pain, and elevated transaminitis. Differential diagnosis includes viral hepatitis (unlikely given hep a,b,c neg) versus malignancy such as pancreatic cancer (mrcp shows no mass panc), versus passed CBD (possibly) versus autoimmune hepatitis (ricardo +). The patient denies any herbal or new medications prior to the onset of jaundice. The patient's transaminases do not paint a picture of alcoholic hepatitis. abdominal u/s 12/17/2016- Hyperechoic liver echotexture, most likely reflecting moderate diffuse fatty infiltration throughout the liver. No biliary distention is seen, no gallstones are identified within the gallbladder lumen and there is no suspicion for acute cholecystitis at this time. The right kidney shows mild to moderate hydronephrosis, etiology uncertain. Bladder diverticulum, debris within the bladder lumen. Findings discussed with the ordering healthcare provider. The creatinine level is elevated, CT scanning with oral contrast through the abdomen and pelvis is anticipated, and followup MR cholangiography may be obtained subsequently given reported abnormal liver function test despite the presence of no identified biliary distention. ct abdomen pelvis NO contrast 12/17/2016- 1. No acute intra-abdominal findings. Normal appendix. 2. Diverticulosis. No acute diverticulitis. 3. Diffuse cortical scarring, or renal atrophy, and mild bilateral hydronephrosis and hydroureter. There no stones to explain obstruction. The bilateral dilated renal collecting systems are likely chronic in nature. This finding may be secondary to ureteral outlet obstruction and dilated bladder. Reflux study could also be helpful if further characterization is warranted. Note: The preliminary [facility] interpretation and the above final report are concordant. 4. Partially characterized intermediate density fluid collection or soft tissue mass likely associated with the right testicle. Testicular ultrasound recommended to further characterize this finding. mrcp 12/18/2016- IMPRESSION: 1. No intra- or extrahepatic biliary ductal dilation to explain patient's jaundice. Contracted gallbladder at the time of scan limits gallbladder evaluation. 2. Normal sized spleen, with findings consistent with increased iron deposition. 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 3. Bilateral hydronephrosis again noted, along with multifocal renal cortical scarring, consistent with chronic vesicoureteral reflux. 4. Several bilateral renal cortical simple cysts again noted. 5. Transverse and descending colon diverticulosis. labs tbili 6.6-> 6.1-> 3.1 direct bili 1.9 ast 93-> 67-> 54 alt 252-> 187-> 132 alk phosph 425-> 401-> 403 RECOMMENDATIONS: 1. await RICARDO +, anti-smooth muscle, anti-LKM, and antimitochondrial antibody. 2. If the patient's liver enzymes continue to trend higher during hospital admission, will consider an ultrasound-guided liver biopsy versus patient may need an endoscopic ultrasound if the MRCP is negative to rule out pancreatic mass or retained CBD stone not identified by imaging. Will continue to follow. Problems: VTE Prophylaxis: Sub-Q Heparin (Unfractionated), SCDs Resuscitation Status: DNR/DNI:Do Not Resuscitate/Intubate Randall Alaniz MD Dec 19, 2016 09:56
[2016-12-19] MEDS: MeTOProlol XL 50 mg ER24 Tablet PO SCH (10:00)
--- NOTE | 2016-12-19 11:15 | PCM.HPSURG ---
Subjective Date of Service: Dec 19, 2016 Referring Provider: Admitting Physician: Yumi Perry DO Primary Care Physician: Genesis Barba PA-C Attending Physician: Garfield Lane MD Chief Complaint hydroureteronephrosis History of Present Illness Mr Ford is a very pleasant 86 M with bilateral hydroureteronephrosis. He notes recent history of urinary frequency--for over a week. - He states his frequency was about every hour prior to presentation. Arceo catheter was placed. CT before arceo was inserted demonstrates a very distended bladder as well as bilateral hydroureteronephrosis. Of note, he has history of prostate cancer that he states was treated with "roto -rooter" many years ago. Allergy Allergies: Coded Allergies: lisinopril (Verified Allergy, Unknown, 03/18/16) Uncoded Allergies: Seafood (Allergy, Severe, Angioedema, 03/18/16) Social History Hx Alcohol Use: Yes (1 mixed drink 1-2 times a month) Hx Substance Use: No Hx Tobacco Use: Yes (quit in high school, 1ppd x 1 year) PMH HEENT History History of ENT Problems?: No HEENT History: Denies:: Cataracts Dysphagia Glaucoma Sinus Problem Cardiovascular History History of Heart Problems?: No Cardiovascular History: Positive for:: Chest Pain (occasionally) Hypertension Denies:: Cardiac Surgery Congestive Heart Failure Edema Heart Murmur Irregular Heartbeat Pacemaker Thrombophlebitis Respiratory History of Respiratory Problem: No Respiratory History: Positive for:: Pneumonia Denies:: Asthma COPD Chest Surgery Dyspnea Emphysema Hemoptysis Tuberculosis Neurological History Hx Neurologic Problems?: No Neurological History: Denies:: Alzheimer's Disease CVA Dementia Dizziness Headaches Parkinson's Disease Seizures Gastrointestinal History HX of GI Problems?: Yes Gastrointestinal History: Positive for:: Gastroesphageal Reflux (GERD) Heartburn (tums helps) Hepatitis (non specifies) Denies:: Diverticulitis Gastrointestinal Bleeding Hiatal Hernia Rectal Bleeding Genitourinary History Hx of Gu Problems?: Yes Genitourinary History: Positive for: Urinary Tract Infection Denies: HX of Hemodialysis Kidney Stones Other Pertinent History?: urinary retention Female/Male History Reproductive History Male: Positive for: Prostate Problems Denies: Scrotal Mass Musculoskeletal History Hx Musculoskeletal Problems?: Yes Musculoskeletal History: Denies:: Back Injury Joint Replacement Musculoskeletal Trauma Psycho Social History Hx of Psycho/Social Problems?: No Psycho Social History: Positive for:: Anxiety Denies:: Bipolar Disorder Hx Depression Suicide Attempt Other History Hx Any Other Health Problems?: Yes Other History: Positive for:: Cancer (prostate) Hospitalization Denies:: Thyroid Disease Diabetes: No (per pt borderline) Social History Hx Alcohol Use: Yes (1 mixed drink 1-2 times a month)Hx Substance Use: NoHx Tobacco Use: Yes (quit in high school, 1ppd x 1 year) Smoking Status: Former Smoker (quit in high school, 1ppd x 1 year) Living Arrangement: Alone H&P Surgical Exam Exam General: Oriented X3 Neck: Supple Lungs: Clear to Auscultation Heart: Exam Unremarkable Abdomen: Benign, Soft, Non-tender, Non-distended, Normoactive bowel tones Catheters: Urethral 2 Way Arceo Assessment & Plan Assessment Very pleasant 86 M with bilateral hydroureteronephrosis VTE Prophylaxis: Sub-Q Heparin (Unfractionated), SCDs Plan: We reviewed his CT scan - Narinder diagrams of the kidneys, ureters, bladder, urethra, prostate to facilitate discussion I explained the nature of his problem - He appears to have bladder outlet obstruction, likely a prostatic source, even in light of his TURP, which I sense is a remote history of His Cr is now 1.65, which seems to be about his baseline - Previously, his Cr was in the 2s range I have reviewed his MRI, and I shared with him the results in terms of his urinary tract - The hydro appears improved, so I have little/no suspicion of a more proximal obstruction (ie, his ureters) I recommended he continue the arceo as an outpatient - He can follow-up at my office - I would like him to start Flomax, which I will order for him We reviewed Flomax - Mechanism of - Rationale for - Potential risks Dispo: - Continue arceo catheter as an outpt - Recommend arceo teaching with leg and overnight bags - Start Flomax - Follow-up with me 01/04/17 at 9 AM, check-in at 8:45 AM at the Urology clinic in [place] ([facility]) Thank you for your kind consultation on this very pleasant gentleman. Resuscitation Status: DNR/DNI:Do Not Resuscitate/Intubate Anne-Marie Posey MD Dec 19, 2016 11:15
--- NOTE | 2016-12-19 11:36 | PCM.PNMED ---
Subjective Date of Service Dec 19, 2016 Subjective afebrile, denied abd pain, arceo in place, denied n/v, scrotal pain, Exam Vital Signs Vital Sign - Last Date Time Temp Pulse Resp B/P Pulse Ox O2 Delivery O2 Flow Rate FiO2 12/19/16 04:40 36.7 84 17 167/67 94 Room Air Intake and Output 12/18/16 12/18/16 12/19/16 Cumulative From/Thru 15:00 23:00 07:00 12/17/16 14:39 - 12/19/16 05:52 Intake Total 1178 ml 751 ml 2929 ml Output Total 1700 ml 1100 ml 3700 ml Balance -522 ml -349 ml -771 ml Intake Oral 0 ml 120 ml 120 ml IV Total 1178 ml 631 ml 2809 ml Output Urine Total 1700 ml 1100 ml 3700 ml # Bowel Movements 1 0 1 Exam NAD, comfortably laying down on the bed no JVD, MMM, no LAD RRR, nl s1, s2 no mrg CTAB, no w,c S,ND,no RUQ td, no CVAT, normoactive BS+ warm, no edema, pulses 2/2 Reducible Left scrotal edema, nontender, no erythema arceo in place IVs and Medications Medications Reviewed: Medications were reviewed in detail Lab and Diagnostics Result Diagram: 12/19/1680412/18/16514 Microbiology Blood culture 2 pending. Urine culture pending. . X-Rays, CTs and MRIs US ABDOMEN IMPRESSION: Hyperechoic liver echotexture, most likely reflecting moderate diffuse fatty infiltration throughout the liver. No biliary distention is seen , no gallstones are identified within the gallbladder lumen and there is no suspicion for acute cholecystitis at this time. The right kidney shows mild to moderate hydronephrosis, etiology uncertain. Bladder diverticulum, debris within the bladder lumen. Findings discussed with the ordering healthcare provider. The creatinine level is elevated, CT scanning with oral contrast through the abdomen and pelvis is anticipated, and followup MR cholangiography may be obtained subsequently given reported abnormal liver function test despite the presence of no identified biliary distention. Dictated by: Jourdan Nuñez M.D. on 12/17/2016 at 20:26 X-RAY CHEST ONE VIEW, PORTABLE IMPRESSION: Normal for age. Dictated by: Jourdan Nuñez M.D. on 12/17/2016 at 19:07 . Assessment & Plan Monica Ford is an 86-year-old male with a past medical history significant for hypertension and GERD who presents to [facility] emergency Department complaining of worsening intermittent abdominal pain 6 days. acute, active #Acute obstructive uropathy with mild bilateral hydronephrosis secondary to BPH , present on admission. Active. Patient presented with dysuria, hematuria, urinary frequency with profound leukocytosis. Patient has a history of BPH status post prostate surgery which is likely the cause of his obstruction. CT abd showed mild bilateral hydronephrosis. Arceo catheter was placed. UCX grew groupB beta strep. - pt remained clinically stable, renal function improving, - Roxicodone 2.5 mg every 4 hours as needed for pain due to acute transaminitis. - awaits blood cultures 2 - Continue ceftriaxone 2 g every 24 hours. - appreciate recommendation continue Flomax #UTI, POA, no s/s of pylenephritis. complicated based on gender, -continue ceftazolin 500mg q12h #LUIS F, POA, due to obstructive uropathy as above, Patient's baseline creatinine 1.5 in 2016. Initial creatinine 2.38, trends cr, avoid renal toxin, renally adjust meds #Acute transaminitis, present on admission. Initial bilirubin 6.6 with elevated LFTs in a cholestatic pattern. Abdominal ultrasound did not reveal dilation of the common bile duct, MRCP also unremarkable. Viral hep panel all ngtd. Serology shows positive ROSEANN an ds DNA. it's suggested that pt had gall stones already passed. -pt remained asymptomatic, resolved abdominal pain. -pending labs: AMA ab, LKM, anti Sm -appreciate input #hyperglycemia, POA, a1c8.5, likely undiagnosed DM, -start lantus 5unit today, fsg qhs. Chronic, resolved. #Acute hyponatremia, present on admission. resolved with IVF #Hypertension, present on admission. Stable. Continue losartan 100 mg daily and metoprolol succinate 50 mg daily. GERD, present on admission. Stable. Tums ordered PRN. PRN antiemetics: Zofran and Maalox. PRN bowel regimen: Senna and MiraLAX. PRN analgesics: Tylenol. dispo: likely 2-3more days given multiple issues VTE Prophylaxis: Sub-Q Heparin (Unfractionated), SCDs Resuscitation Status: DNR/DNI:Do Not Resuscitate/Intubate Time spent 35min Gar[address] MD Dec 19, 2016 08:42
[2016-12-19] MEDS ORDERED: Glucose 40% Oral Gel 15 Gm Tube PO PRN (13:25)
[2016-12-19] MEDS: Insulin GLARgine 100 Unit/mL Syringe SUBQ SCH (13:25)
[2016-12-19 13:30] VITALS: BP 152/78; PULSE 70; RESP 18; O2SAT 95
[2016-12-19] MEDS: Insulin LISPRO 300 Unit/3 mL Inj SUBQ SCH ×2 (17:00→21:29)
--- NOTE | 2016-12-19 18:25 | NUR ---
ACTIVITY/BLOOD SUGAR Patient denies pain. Tolerating liquids PO and his diet well. Denies nausea. No emesis noted. Denies SOB. IFC intact and draining to emelia colored UO. + BM. Patient has been ambulating with SBA in the room. Tolerated activity well. BS-200-[address] is aware. Patient started on a sliding scale and on Lantus. Patient teaching done RE: Diabetic medication and he verbalized understanding.
[2016-12-19 19:35] VITALS: BP 132/66; PULSE 71; RESP 18; O2SAT 100
[2016-12-20] MEDS: Heparin 5,000 Unit/mL Inj SUBQ SCH ×2 (00:20→08:24)
[2016-12-20] MEDS: Sodium Chloride LOK Flush 10 mL Syringe IVFLUSH SCH ×2 (00:20→08:24)
[2016-12-20] MEDS: 0.9% Sodium Chloride 1,000 ML IV SCH (00:55)
[2016-12-20] MEDS: CEFAZOLIN IV SCH (00:55)
[2016-12-20] MEDS: DEXTROSE 5% IV SCH (00:55)
--- NOTE | 2016-12-20 03:37 | NUR ---
Activity/Pain/Blood sugar/Lilly cath Pt is alert, oriented, and able to make needs known. Pleasant and cooperative with care. Walked in hallways with this telegraphic typewriter repairer about 80ft and stated " I feel great". Denies pain, resp distress and/or SOB. Blood sugar 267 and 194 on this shift and sliding scale insulin administered per order with no s/s of hypoglycemia or hyperglycemia noted. Pt educated about refraining from food high in glucose and pt verbalized understanding. Lilly catheter in place, patent and draining emelia color urine with some sediment noted. Pt denies dysuria or burning sensation around kareem area. Will continue to monitor.
[2016-12-20 05:24] VITALS: BP 157/81; PULSE 71; RESP 18; O2SAT 98
[2016-12-20 06:24] LABS: Mean Corpuscular Volume 93.3 fL (81-100)
[2016-12-20 06:32] LABS: Mean Corpuscular Hemoglobin 32.3 pg (27.0-35.0); Platelet Count 208 bil/L (150-400)
[2016-12-20 06:47] LABS: Magnesium 1.8 mg/dL (1.6-2.6)
--- NOTE | 2016-12-20 07:47 | PCM.PNSURG ---
Subjective Date of Service: Dec 20, 2016 Date of Service: Dec 20, 2016 Visit Information: Subjective: no abdominal pain this am. pt walking in hallway early in am. transaminases trending down. tbili 1.7 this am. Postop General: No Complaints Objective Vital Sign- Last 8 Hours Date Time Temp Pulse Resp B/P Pulse Ox O2 Delivery O2 Flow Rate FiO2 12/20/16 05:24 36.6 71 18 157/81 98 Room Air Intake and Output- Last 8 Hour 12/20/16 Cumulative From/Thru 07:00 12/17/16 14:39 - 12/20/16 06:23 Intake Total 1199 ml 6783 ml Output Total 1250 ml 5950 ml Balance -51 ml 833 ml Intake Oral 758 ml 2598 ml IV Total 441 ml 4185 ml Output Urine Total 1250 ml 5950 ml # Bowel Movements 0 3 General: Oriented X3 Neck: Supple Lungs: Clear to Auscultation Heart: Exam Unremarkable Abdomen: Benign, Soft, Non-tender, Non-distended, Normoactive bowel tones Extremities: Distal Pulses Palpable Result Diagram: 12/19/16 0805 12/20/16 0555 Assessment & Plan Impression This is an 86-year-old, male with a history of hypertension, gout, gastroesophageal reflux disease, benign prostatic hypertrophy status post transurethral resection of the prostate presents here with jaundice, abdominal pain, and elevated transaminitis. Differential diagnosis includes viral hepatitis (unlikely given hep a,b,c neg) versus malignancy such as pancreatic cancer (mrcp shows no mass panc), versus passed CBD (possibly) versus autoimmune hepatitis (ricardo +). The patient denies any herbal or new medications prior to the onset of jaundice. The patient's transaminases do not paint a picture of alcoholic hepatitis. Pt elevated transaminases most likely from pass CBD stone. abdominal u/s 12/17/2016- Hyperechoic liver echotexture, most likely reflecting moderate diffuse fatty infiltration throughout the liver. No biliary distention is seen, no gallstones are identified within the gallbladder lumen and there is no suspicion for acute cholecystitis at this time. The right kidney shows mild to moderate hydronephrosis, etiology uncertain. Bladder diverticulum, debris within the bladder lumen. Findings discussed with the ordering healthcare provider. The creatinine level is elevated, CT scanning with oral contrast through the abdomen and pelvis is anticipated, and followup MR cholangiography may be obtained subsequently given reported abnormal liver function test despite the presence of no identified biliary distention. ct abdomen pelvis NO contrast 12/17/2016- 1. No acute intra-abdominal findings. Normal appendix. 2. Diverticulosis. No acute diverticulitis. 3. Diffuse cortical scarring, or renal atrophy, and mild bilateral hydronephrosis and hydroureter. There no stones to explain obstruction. The bilateral dilated renal collecting systems are likely chronic in nature. This finding may be secondary to ureteral outlet obstruction and dilated bladder. Reflux study could also be helpful if further characterization is warranted. Note: [facility] the above final report are concordant. 4. Partially characterized intermediate density fluid collection or soft tissue mass likely associated with the right testicle. Testicular ultrasound recommended to further characterize this finding. mrcp 12/18/2016- IMPRESSION: 1. No intra- or extrahepatic biliary ductal dilation to explain patient's jaundice. Contracted gallbladder at the time of scan limits gallbladder evaluation. 2. Normal sized spleen, with findings consistent with increased iron deposition. 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 3. Bilateral hydronephrosis again noted, along with multifocal renal cortical scarring, consistent with chronic vesicoureteral reflux. 4. Several bilateral renal cortical simple cysts again noted. 5. Transverse and descending colon diverticulosis. labs tbili 6.6-> 6.1-> 3.1-> 1.7 direct bili 1.9 ast 93-> 67-> 54-> 46 alt 252-> 187-> 132-> 92 alk phosph 425-> 401-> 403-> 385 RECOMMENDATIONS: 1. await RICARDO +, anti-smooth muscle, anti-LKM, and antimitochondrial antibody. 2. ok to d/c home from gi perspective today 3. f/u gi clinic in 2-4 weeks with cmp prior to visit Will sign off Problems: VTE Prophylaxis: Sub-Q Heparin (Unfractionated), SCDs Resuscitation Status: DNR/DNI:Do Not Resuscitate/Intubate Randall Alaniz MD Dec 20, 2016 07:47
[2016-12-20 08:16] LABS: BASOPHILS % (AUTO) 1 % (0-3); EOSINOPHILS % (AUTO) 3 % (0-5); MONOCYTES % (AUTO) 5 % (4-12); NEUTROPHILS % (AUTO) 71 % (40-74)
[2016-12-20] MEDS ORDERED: CEPH-512 PO (08:24)
[2016-12-20] MEDS: MeTOProlol XL 50 mg ER24 Tablet PO SCH (08:24)
[2016-12-20] MEDS: Insulin GLARgine 100 Unit/mL Syringe SUBQ SCH (08:24)
[2016-12-20] MEDS ORDERED: TAMS0.4C98 PO (08:24)
[2016-12-20] MEDS: Insulin LISPRO 300 Unit/3 mL Inj SUBQ SCH (08:25)
[2016-12-20] MEDS ORDERED: METF500T4 PO (08:28)
--- NOTE | 2016-12-20 10:41 | PCM.DIMED ---
Discharge Instructions Date of Service Dec 20, 2016 Dates of Hospitalization Dec 18, 2016 at 00:24 Discharge Diagnosis Discharge Diagnosis acute dx #Acute obstructive uropathy with mild bilateral hydronephrosis secondary to BPH #complicated UTI with GBS #LUIS F due to obstructive uropathy #Acute transaminitis, obstructive cholelithiasis #Newly diagnosed diabetes #hyponatremia Chronic dx Hypertension GERD Diet Discharge Diet: Heart Healthy, Diabetic Activity Discharge Activity: No restrictions Call your provider Call your provider for: Fever or Chills, Shortness of breath Patient Instructions Patient Instructions You were hospitalized with several medical conditions concerning for kidney infection, kidney injuries due to enlarged prostate and liver problem. You required urinary catheter to maintain your urine flow, evaluated by Urologist, . Please note that you were found to have overt diabetes, required insulin to control your surgar. You were also treated for kidney infection. This possible that he also had gallbladder stones which already have passed Please follow-up with your new primary Dr. Marsha Stein one week, You are required to repeat blood test to see your kidney and liver number in one 1week Please continue urinary catheter until you see urologist, , you were scheduled for 01/04/17 at 9 AM, check-in at 8:45 AM at the Urology clinic in [place] ([facility]) Please continue antibiotics, Keflex 500mg 4 times per day for 12 more days Please continue to take Flomax daily, this is a medicine for your prostate Follow-up Provider: Anne-Marie Posey MD Follow-up with PCP in: [address] MD Dec 20, 2016 10:41
--- NOTE | 2016-12-20 11:13 | NUR ---
Social Work note - Discharge COMMISSIONING EDITOR met with Pt and Pt's son Armen. EMR reviewed, Pt discussed in Multidisciplinary rounds. MD identifies that pt is able to d/c home today. Pt and family agree - Pt states he is feeling much better and has everything he needs at home - Family will provide support. Pt is independent at baseline. Family had questions about DPOA for medical - they asked for another copy of paperwork and COMMISSIONING EDITOR provided education with teach back about how to fill it out - answered all questions. Pt and family will complete paperwork and return it to the hospital at future time or to his PCP. Assessment: Pt who is feeling better - is up independent in room. plan: Home today with family providing transportation - No needs identified. JOSE MANUEL Negron
--- NOTE | 2016-12-20 12:20 | NUR ---
Discharge Patient discharged home with his son. Assisted to get dressed, and was accompanied out via wheelchair. Discharge information gone over with patient, his son, and his girlfriend. Informed patient on follow up appointments, new medications, and educational handouts. Talked with patient about his new diet and arceo catheter care. Patient and his son showed verbal understanding of discharge information. Prescriptions went with patient as hard copies along with his personal belongings. IV DC'd intact.
--- NOTE | 2016-12-20 15:22 | PCM.DC.MED ---
Discharge Summary Date of Service Dec 20, 2016 Dates of Hospitalization Date of Hospital Admission Dec 18, 2016 at 00:24 Date of Discharge: Dec 20, 2016 Providers: Admitting Physician: Yumi Perry DO Primary Care Physician: Genesis Barba PA-C Attending Physician: Garfield Leyva MD Diagnosis at Time of Discharge Diagnosis at Time of Discharge acute dx #Acute obstructive uropathy with mild bilateral hydronephrosis secondary to BPH #complicated UTI with GBS #LUIS F due to obstructive uropathy #Acute transaminitis, obstructive cholelithiasis #Newly diagnosed diabetes #hyponatremia Chronic dx Hypertension GERD Consultations GI Procedures XRay, CTs & MRIs PROCEDURE: CT ABDOMEN AND PELVIS WITHOUT CONTRAST ([id number]) INDICATIONS: jaundice, hepatitis obstructive pattern TECHNIQUE: After the administration of oral contrast, 5 mm thick sections acquired from the diaphragms to the symphysis. 5 mm coronal and sagittal reformats were performed. For radiation dose reduction, the following was used: automated exposure control, adjustment of mA and/or kV according to patient size. COMPARISON: None. FINDINGS: Image quality: Excellent. ABDOMEN: Lung bases: Lung bases are clear. Heart size is normal. Solid organs: Liver and spleen are normal in size. Gallbladder is contracted. Pancreas is normal in size. No adrenal nodules. A there multiple focal cortical scars throughout the bilateral kidneys. The right kidney is moderately atrophic. There is mild bilateral hydronephrosis and large extrarenal pelves bilaterally. The bilateral ureters are moderately dilated throughout their course. There multiple low density exophytic renal cystic lesions and mild perinephric fat stranding. Peritoneum and bowel: Bowel loops demonstrate normal wall thickness and caliber. The appendix is thin walled. There are scattered sigmoid diverticula. No evidence for diverticulitis. No free fluid or air. Nodes and vessels: No retroperitoneal or mesenteric adenopathy by size criteria. Aorta and inferior vena cava are normal in size. There are scattered atheromatous calcifications throughout the aorta and iliac arteries bilaterally. Miscellaneous: No ventral hernias. PELVIS: Genitourinary: Bladder wall thickness is normal. Miscellaneous: No inguinal adenopathy. There is an intermediate density soft tissue mass or fluid collection may be associated with the superior aspect of the right testicle, and is only partially characterized at the inferior margin of the study (series 2, image 94). There is a small fat containing left inguinal hernia. Bones: No suspicious bony lesions. No vertebral body compression fractures. Severe degenerative changes are present throughout the lumbar spine. IMPRESSION: 1. No acute intra-abdominal findings. Normal appendix. 2. Diverticulosis. No acute diverticulitis. 3. Diffuse cortical scarring, or renal atrophy, and mild bilateral hydronephrosis and hydroureter. There no stones to explain obstruction. The bilateral dilated renal collecting systems are likely chronic in nature. This finding may be secondary to ureteral outlet obstruction and dilated bladder. Reflux study could also be helpful if further characterization is warranted. Note: The preliminary [facility] interpretation and the above final report are concordant. 4. Partially characterized intermediate density fluid collection or soft tissue mass likely associated with the right testicle. Testicular ultrasound recommended to further characterize this finding. This finding was not described on the overnight interpretation. This finding was discussed with the patient's nurse at 8:46 AM on 12/18/16. Dictated by: Gemini Vega M.D. on 12/18/2016 at 8:37 Approved by: Gemini Vega M.D. on 12/18/2016 at 8:48 US ABDOMEN IMPRESSION: Hyperechoic liver echotexture, most likely reflecting moderate diffuse fatty infiltration throughout the liver. No biliary distention is seen , no gallstones are identified within the gallbladder lumen and there is no suspicion for acute cholecystitis at this time. The right kidney shows mild to moderate hydronephrosis, etiology uncertain. Bladder diverticulum, debris within the bladder lumen. Findings discussed with the ordering healthcare provider. The creatinine level is elevated, CT scanning with oral contrast through the abdomen and pelvis is anticipated, and followup MR cholangiography may be obtained subsequently given reported abnormal liver function test despite the presence of no identified biliary distention. Dictated by: Jourdan Nuñez M.D. on 12/17/2016 at 20:26 X-RAY CHEST ONE VIEW, PORTABLE IMPRESSION: Normal for age. Dictated by: Jourdan Nuñez M.D. on 12/17/2016 at 19:07 . Other Diagnostics PROCEDURE: MR ABDOMEN MRCP INDICATIONS: 86 year-old male with jaundice, pruritus, and transaminitis. TECHNIQUE: Coronal HASTE through the abdomen, axial 2-D FLASH in- and [id number], and breath-hold T2 FSE with fat saturation through the biliary system and pancreas. Oblique coronal and axial thin-slice HASTE, radial thick-slab HASTE centered on the extrahepatic bile ducts. Intravenous secretin: Not requested. COMPARISON: [facility], CT, CT ABD PELVIS WO CON, 12/17/2016, 21: 59. [facility], US, US ABDOMEN, 12/17/2016, 18:53. FINDINGS: Image quality: Several sequences are mildly degraded by respiratory motion. Pancreas and biliary system: Intra- and extra-hepatic biliary ducts are non dilated. Pancreas is normal in morphology, without adjacent soft tissue edema. Pancreatic duct is normal in caliber, without developmental anomalies. Gallbladder is contracted at the time of scanning, therefore not well- visualized. Other solid organs: Liver and spleen are normal in size. In and out of phase images demonstrate no fatty infiltration of the liver. In phase images demonstrate decreased signal within the splenic parenchyma. No adrenal nodules. Several bilateral renal cortical simple cysts are again noted, measuring up to 4.4 cm in the inferior left kidney. Bilateral renal cortical scarring is again noted, as well as mild lateral hydronephrosis. Nodes and vessels: No retroperitoneal or mesenteric adenopathy by size criteria. Aorta and inferior vena cava are normal in size. Bowel and peritoneum: Unenhanced bowel loops are normal in caliber. There is transverse and descending colon diverticulosis. No free fluid. The bladder is decompressed by a Arceo catheter. Lung bases: No basal pleural effusions. Heart size is normal. Bones and soft tissues: No ventral hernias. Bone marrow is of normal overall signal. There is multilevel lumbar spine disc degeneration. IMPRESSION: 1. No intra- or extrahepatic biliary ductal dilation to explain patient's jaundice. Contracted gallbladder at the time of scan limits gallbladder evaluation. 2. Normal sized spleen, with findings consistent with increased iron deposition. 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 3. Bilateral hydronephrosis again noted, along with multifocal renal cortical scarring, consistent with chronic vesicoureteral reflux. 4. Several bilateral renal cortical simple cysts again noted. 5. Transverse and descending colon diverticulosis. Dictated by: Rivera Rae M.D. on 12/18/2016 at 15:19 Approved by: Rivera Rae M.D. on 12/18/2016 at 15:37 Brief History HPI obtained by Dr. Perry on 12/18 Monica Ford is an 86-year-old male with a past medical history significant for hypertension and GERD who presents to [facility] emergency Department complaining of worsening intermittent abdominal pain 6 days. The patient complains of abdominal pain that started approximately 6 days ago. He reports that he began increasing frequency of urination. He has associated dysuria with burning sensation, hematuria, and flank pain. He denies fever, nausea, vomiting, and diarrhea. He rates his abdominal pain a + 7 out of 10 in severity. He has tried acetaminophen with Benadryl 1-2 tabs in the last week which gave him some relief. He has also had unrelated pruritus and non- productive cough. He denies any history of nephrolithiasis. Vital signs in the ER: Temperature 37.0. Pulse 73. Respiratory rate 20. Blood pressure 120/70. Pulse ox 97% on room air. He was given 1 L NS and ceftriaxone 2 g 1 in the ER. PCP is Genesis Barba PA-C. . Hospital Course acute dx #Acute obstructive uropathy with mild bilateral hydronephrosis secondary to BPH , Patient presented with dysuria, hematuria, urinary frequency with profound leukocytosis. Patient has a history of BPH status post prostate surgery which is likely the cause of his obstruction. CT abd showed mild bilateral hydronephrosis. Arceo catheter was placed. UCX grew groupB beta strep. Pt was seen by , recommended Flomax and keep the arceo cath until follow up appointment in the clinic. #UTI, POA, no s/s of pylenephritis. complicated UTI based on gender, UCX grew group B beta streptococcus, pt received ceftazolin 500mg q12h during hospitalization and discharged on Keflex to finish 14days of course. #LUIS F, POA, due to obstructive uropathy as above, Patient's baseline creatinine 1.5 in 2016. Initial creatinine 2.38, after decompression with arceo, renal function further improved to 1.49 on the day of d/c. Patient was recommended to repeat chemistry in 1week with new PCP Dr.John Stein. #Acute transaminitis, Initial bilirubin 6.6 with elevated LFTs in a cholestatic pattern. Abdominal ultrasound did not reveal dilation of the common bile duct, MRCP also unremarkable. Viral hep panel all ngtd. Serology shows positive ROSEANN an ds DNA. Patient was consulted by Gi Dr. Ingram. it's suggested that pt had GB stones already passed. patient remained asymptomatic. sendout labs are pending: AMA ab, LKM, anti Sm. Patient was recommended to follow up with GI clinic as needed. #hyperglycemia, POA, a1c8.5, fsg runs 200-low 300s. this is likely newly diagnosed DM, pt was diagnosed with prediabetes, but never on any OHA or insulin. pt was given lantus 5unit, tolerated well. patient will start metformin 500mg daily and recommended to increase the dosage to 500mg twice a day if he can tolerate. #Acute hyponatremia, Na128, hypervolemic with obstructive uropathy, resolved chronic dx #Hypertension, present on admission. Stable. Continue losartan 100 mg daily and metoprolol succinate 50 mg daily. #GERD, present on admission. Stable. Tums ordered PRN. Exam Vital Signs (Last) Date Time Temp Pulse Resp B/P Pulse Ox O2 Delivery O2 Flow Rate FiO2 12/20/16 05:24 36.6 71 18 157/81 98 Room Air Exam pt was examined on the day of d/c Test 12/17/16 15:37 12/17/16 15:48 12/18/16 00:09 12/18/16 00:14 Urine Color Yellow (YELLOW) Urine Appearance Turbid (CLEAR,HAZY) Urine pH 5.0 (5.0-8.0) Urine Specific [place] 1.025 (1.003-1.035) Urine Protein 100mg/dL (NEG,TRACE) Urine Glucose (UA) Negativemg/dL (NEGATIVE) Urine Ketones Negativemg/dL (NEGATIVE) Urine Occult Blood Large (NEGATIVE) Urine Nitrite Negative (NEGATIVE) Urine Bilirubin Moderate (NEGATIVE) Urine Ictotest Positive (Negative) Urine Urobilinogen Normalmg/dL (NORMAL) Urine Leukocyte Esterase Moderate (NEGATIVE) Urine RBC 0-2/hpf (0-2) Urine WBC Packed/hpf (0-5) Urine Epithelial Cells Occasional/hpf (NONE-MOD) Urine Crystals None seen (NONE SEEN) Urine Bacteria Many/hpf (NONE-FEW) Urine Hyaline Casts None/lpf (NONE) Urine Granular Casts None seen (NONE SEEN) Urine Waxy Casts None seen (NONE SEEN) Urine Red Blood Cell Casts None seen (NONE SEEN) Urine White Blood Cell Casts None seen (NONE SEEN) Urine Mucus Present (None Seen) Urine Trichomonas None seen (NONE SEEN) Urine Yeast None (NONE SEEN) Urinalysis Comment None Urine Culture Reflexed Indicated Prothrombin Time 11.4sec (8.1-12.5) Prothromb Time International Ratio 1.06ratio Troponin T 0.013ug/L (0.0-0.011) Hold Verdugo Top Tube Received (Received) Acetaminophen Level < 15.0ug/mL Rx (10-25) Hold Urine Received (Received) Hepatitis A IgM Antibody Negative (Negative) Hepatitis B Surface Antigen Negative (Negative) Hepatitis B Core IgM Antibody Negative (Negative) Hepatitis C Antibody <0.1s/co ratio (0.0-0.9) Hepatitis C Comment Comment (.) Test 12/18/16 05:15 12/18/16 09:12 12/19/16 08:05 12/20/16 05:55 Hemoglobin A1c 8.5% (4.8-5.6) Lipase 136U/L (13-60) Procalcitonin 0.91ng/mL (0.00-0.08) Anti-Nuclear Antibody Screen Positive (Negative) Anti-Nuclear Antibody Comment Comment (.) SS-A/Ro Antibody <0.2AI (0.0-0.9) SS-B/La Antibody <0.2AI (0.0-0.9) Sm (Salvador) IgG Antibody, Quant <0.2AI (0.0-0.9) Anti-Double Strand DNA Antibody 10IU/mL (0-9) Mitochondrial/Smooth Musc Ab Titer 10.3Units (0.0-20.0) Direct Bilirubin 1.9mg/dL (0.0-0.3) White Blood Count 15.0th/mm3 (3.8-10.1) Red Blood Count 3.59mil/mm3 (4.40-5.80) Hemoglobin 11.6g/dL (13.8-17.2) Hematocrit 33.5% (41.0-50.0) Mean Corpuscular Volume 93.3fL (81-100) Mean Corpuscular Hemoglobin 32.3pg (27.0-35.0) Mean Corpuscular Hemoglobin Concent 34.6% (32.0-37.0) Red Cell Distribution Width 13.4% (12.3-15.4) Platelet Count 208bil/L (150-400) Neutrophils (%) (Auto) 71% (40-74) Lymphocytes (%) (Auto) 18% (14-46) Monocytes (%) (Auto) 5% (4-12) Eosinophils (%) (Auto) 3% (0-5) Basophils (%) (Auto) 1% (0-3) Band Neutrophils % 0% (1-5) Metamyelocytes % 0% (0-0) Myelocytes % 2% (0-0) Hematology Comments Hematology Sodium Level 138mEq/L (134-144) Potassium Level 4.4mEq/L (3.5-5.2) Chloride Level 104mEq/L (97-108) Carbon Dioxide Level 21mmol/L (18-29) Blood Urea Nitrogen 26mg/dL (8-27) Creatinine 1.49mg/dL (0.76-1.27) Estimat Glomerular Filtration Rate 48mL/min (>59) Glucose Level 229mg/dL (60-99) Calcium Level 8.0mg/dL (8.5-10.1) Magnesium Level 1.8mg/dL (1.6-2.6) Total Bilirubin 1.7mg/dL (0.0-1.2) Aspartate Amino Transf (AST/SGOT) 46U/L (0-50) Alanine Aminotransferase (ALT/SGPT) 92U/L (0-44) Alkaline Phosphatase 385U/L (25-160) Total Protein 5.6g/dL (6.4-8.4) Albumin 3.1g/dL (3.4-5.0) Microbiology Results Blood culture 2 pending. Urine culture pending. . Discharge Medications Discharge Medications Cephalexin (Keflex) 500 Mg Capsule 500 MG PO QID Prescribed by: GARFIELD LEYVA MD Losartan Potassium (Losartan Potassium) 100 Mg Tablet 100 MG PO DAILY Prescribed by: ISIDRO HERNANDEZ MD Metformin (Metformin) 500 Mg Tablet 500 MG PO DAILY Prescribed by: GARFIELD LEYVA MD Metoprolol Succinate ER (Metoprolol Succinate ER) 50 Mg Tab.er.24h 50 MG PO DAILY (Reported) Tamsulosin (Flomax) 0.4 Mg Capsule 0.4 MG PO HS Prescribed by: GARFIELD LEYVA MD Miscellaneous Medications Epinephrine (Epinephrine) 0.3 Mg/0.3 Ml Auto.injct Unknown Dose IJ (Reported) Multivitamin (Multivitamins) 1 Each Capsule 1 EACH PO (Reported) Followup Plan Disposition: home Discharge Diet: Heart Healthy, Diabetic Discharge Activity: No restrictions Patient Instructions You were hospitalized with several medical conditions concerning for kidney infection, kidney injuries due to enlarged prostate and liver problem. You required urinary catheter to maintain your urine flow, evaluated by Urologist, . Please note that you were found to have overt diabetes, required insulin to control your surgar. You were also treated for kidney infection. This possible that he also had gallbladder stones which already have passed Please follow-up with your new primary Dr. Marsha Stein one week, You are required to repeat blood test to see your kidney and liver number in one 1week Please continue urinary catheter until you see urologist, , you were scheduled for 01/04/17 at 9 AM, check-in at 8:45 AM at the Urology clinic in [place] ([facility]) Please continue antibiotics, Keflex 500mg 4 times per day for 12 more days Please continue to take Flomax daily, this is a medicine for your prostate Follow-up Provider: Anne-Marie Posey MD Follow-up with PCP in: 2 weeks Time spent 65min Garfield Leyva MD Dec 20, 2016 15:22
== END 2016-12-20 12:05 | disposition home or self-care (01) | DRG 698 ==
LOC: SED 14:15 → OSC 12-18 00:24
PROVIDERS: ADMIT Internal Medicine; ATTEND Internal Medicine
DX: N13.9 Obstructive and reflux uropathy, unspecified (principal); K83.1 Obstruction of bile duct; N17.9 Acute kidney failure, unspecified; E87.1 Hypo-osmolality and hyponatremia; N40.1 Benign prostatic hyperplasia with lower urinary tract symptoms; I10 Essential (primary) hypertension; K21.9 Gastro-esophageal reflux disease without esophagitis; B95.1 Streptococcus, group B, as the cause of diseases classified elsewhere; N39.0 Urinary tract infection, site not specified; E11.9 Type 2 diabetes mellitus without complications